=== PATIENT | female | born 1970 | race Caucasian/White ===

== ENCOUNTER → 2022-01-24 | Outpatient (CLI) | payer MEDICARE ==
--- NOTE | 2022-01-24 16:00 | MR ---
EXAMINATION TYPE: MR lumbar spine wo con DATE OF EXAM: 01/24/2022 COMPARISON: CT lumbar spine July 03, 2015 HISTORY: Low back pain that radiates down right leg. History of surgery. TECHNIQUE: Multiplanar, multisequence imaging of the lumbar spine is performed without IV contrast. FINDINGS: Sagittal images of the lumbar spine show vertebral body height to remain satisfactory. Patty fact from posterior interpedicular rods and screws and artificial disc material L4-S1 levels is redem onstrated. Stable grade 1 anterolisthesis L5 on S1. Disc desiccation at the L2-L3 and L3-L4 levels. The conus medullaris is normal in position and signal ending at mid L1 level. The bone marrow signal intensity is within normal limits. Axial images show T12-L1 and L1-L2 levels to remain within normal limits. Axial images at L2-L3 level shows mild broad-based disc bulge minimally effacing the anterior thecal sac on current study. Patent bilateral neural foramina. Axial images at L3-L4 level show artifact from surgical change otherwise appears within normal limits . Axial images at L4-L5 level shows artifact from surgical change and metallic disc material. There are bilateral laminectomy defects and spinous process resection. Posterior scar tissue is present. Spina l canal preserved. Right paraspinal level shows artifact from superior extension of the lumbosacral f usion device terminating at level of the artificial disc material near axial image 13.. Bilateral raoul ral foramina remain patent. Axial images at L5-S1 level show persistent spondylolisthesis and artifact from surgical change. Post erior decompression changes redemonstrated. Spinal canal is preserved. Left-sided neural foramina is patent. Right side suboptimally evaluated. Paraspinal muscle bulk is maintained. IMPRESSION: Stable postsurgical changes lower lumbar spine with stable lumbosacral spondylolisthesis . New tiny disc herniation at L2-L3 level otherwise no significant change from 2015 CT.
== END | disposition home or self-care (01) ==
LOC: RADMRIMAIN 14:30
PROVIDERS: ATTEND Internal Medicine
DX: M43.17 Spondylolisthesis, lumbosacral region (principal); M51.16 Intervertebral disc disorders with radiculopathy, lumbar region
CPT/HCPCS: 72148

== ENCOUNTER → 2022-04-25 | Outpatient (CLI) | payer MEDICARE ==
--- NOTE | 2022-04-26 04:06 | MR ---
EXAMINATION TYPE: MR cspine/tspine wo con DATE OF EXAM: 04/25/2022 COMPARISON: None HISTORY: Numbness/pain upper and lower extremities Multiplanar multiecho imaging of the cervical and thoracic spine with no contrast. Cervical spine. The cervical vertebra show some straightening. There is mild disc space narrowing and decreased signa l in the disks from C4 to C7. There is minimal posterior endplate spurring at C5-6. There is developm entally large spinal canal and no spinal stenosis. Cervical spinal cord has normal signal pattern. No edema. There is small posterior disc bulging at C5-6 towards the left side with some neural foramina l impingement. No evidence of focal bone destruction. Brainstem is intact. Facet joints are intact. IMPRESSION: There are some spondylotic changes in the cervical spine as above with a posterior left side disc bul ging at C5-6 with neural foraminal impingement. No fracture seen. No cervical spinal stenosis. Thoracic spine. The thoracic vertebra have normal alignment. No evidence of focal bone destruction. No significant co mpression deformity. Thoracic spinal cord has normal signal pattern. No edema. No thoracic spinal rima nosis. No evidence of thoracic paraspinal mass. Posterior elements are intact. There is anterior disc bulging and spurring at T12-L1 level. IMPRESSION: Negative MRI scan of the thoracic spine. No thoracic disc herniation or spinal stenosis. No fracture.
== END | disposition home or self-care (01) ==
LOC: RADMRIMAIN 06:00
PROVIDERS: ATTEND Nurse Practitioner Family
DX: M50.222 Other cervical disc displacement at C5-C6 level (principal); M47.812 Spondylosis without myelopathy or radiculopathy, cervical region
CPT/HCPCS: 72141; 72146